=== PATIENT | female | born 1995 | race Caucasian/White ===

== ENCOUNTER 2017-06-20 18:34 | Emergency (ER) | payer OTHER ==
[~2017-06-20] VITALS: Ht 152.4 cm; Wt 57.0 kg
[~2017-06-20 18:34] MED LIST: CRYS28TA PO; SANCTURA; VENTAER INH; Z.0.NO CURRENT MEDS
[2017-06-20 18:40] VITALS: BP 126/60; PULSE 90; RESP 15; TEMP 99.8; O2SAT 100
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
[2017-06-20] MEDS ORDERED: IBUPROFEN 800 MG TAB PO ONE (19:30)
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
[2017-06-20] MEDS ORDERED: ROBA500T PO (20:00)
[2017-06-20] MEDS ORDERED: IBUP-232 PO (20:00)
== END 2017-06-20 20:36 | disposition home or self-care (01) ==
LOC: NEPK 18:34
DX: S16.1XXA Strain of muscle, fascia and tendon at neck level, initial encounter (principal); J45.909 Unspecified asthma, uncomplicated; V43.62XA Car passenger injured in collision with other type car in traffic accident, initial encounter
CPT/HCPCS: 72125; 84703; 99283